=== PATIENT | male | born 1965 | race Caucasian/White ===

== ENCOUNTER 2020-02-22 12:28 | Emergency (ER) | payer BC, SELFPAY ==
[2020-02-22] VITALS (9 sets, daily range): BP systolic 124–156; BP diastolic 71–94; PULSE 78–123; RESP 12–20; TEMP 36.9; O2SAT 98–100
--- NOTE | ~2020-02-22 | XR_ITS ---
EXAMINATION: XR chest 1V portable DATE: 02/22/2020 13:21 INDICATION: Shortness of breath and cough. TECHNIQUE: A single frontal view of the chest was obtained. COMPARISON: Chest 2 views 01/14/2018 FINDINGS: The chest demonstrates clear lungs without pneumonia, pleural effusion, or pneumothorax. Th e heart size is normal. IMPRESSION: 1. No acute cardiopulmonary disease. Reviewed, dictated and finalized at location A.
--- NOTE | 2020-02-22 12:42 | ECG_ITS ---
Measurements Intervals [place] Rate: 109 P: 80 DE: 183 QRS: -29 QRSD: 98 T: 60 QT: 324 QTc: 438 Interpretive Statements SINUS TACHYCARDIA BASELINE ARTIFACT- I, II, III, AVR, AVL, AVF, V1-V6 ABNORMAL ECG Electronically Signed On 02-22-2020 12:50:10 CDT by Morgan Chapman D.O.
--- NOTE | 2020-02-22 12:43 | ED.SOB ---
HPI - SOB/Dyspnea General Chief Complaint: Shortness of Breath/Dyspnea Stated Complaint: short of breath, cough Time Seen by Provider: 02/22/20 12:32 Source: patient Mode of arrival: ambulatory Limitations: no limitations History of Present Illness HPI Narrative: A 54 y/o male presents to the ED, with c/o SOB that began on Friday (2 days ago) and other respiratory Sx that began on (5 days ago). Pt states that his Sx started with a scratchy throat, cough and congestion, but notes that he has a hx of allergies that are usually exacerbated at this time of the year and thought his Sx were d/t this. He states that his Sx began worsening on Friday and he began having SOB, mild wheezes and chest tightness d/t laboring to breathe. Pt notes a cough with clear sputum production and a measured temperature of 99.5F. Pt has a temperature of 98.5 in the ED. He denies weakness and ABD pain. He states that he had family contacts with a stomach virus recently, but they were not dx with anything. Pt notes working from home and has been self-quarantining/social distancing since January 28, 2020. Pt has a PMHx of HTN, and Hypercholesterolemia. He notes having a stress test done in the past and denies hx of blood clots. elicited complaint: shortness of breath Onset (ago): day(s) (5) Timing: progressively worsening Associated symptoms: fever (99.5F), cough, wheezing (mild), sputum production (clear), chest congestion and other (chest tightness when laboring to breathe) Related Data Home Medications Medication Instructions Recorded Confirmed coenzyme Q10 100 mg capsule 100 mg PO DAILY 10/18/19 fexofenadine 180 mg tablet 180 mg PO DAILY 10/18/19 multivitamin 1 tablet PO DAILY 10/18/19 omega-3 fatty acids 1,000 mg 1,000 mg PO DAILY 10/18/19 capsule Allergies Allergy/AdvReac Type Severity Reaction Status Date / Time aspirin Allergy Unknown Hives Verified 02/22/20 12:43 epinephrine Allergy Unknown Hives Verified 02/22/20 12:43 lidocaine Allergy Unknown Hives Verified 02/22/20 12:43 ANESTHETICS Allergy Intermediate HIVES Uncoded 12/18/18 09:41 Review of Systems Review of Systems: All systems reviewed & are unremarkable except as noted in HPI and below Constitutional: Constitutional: Reports fever(s) (99.5F) and Denies weakness ENT: Reports sore throat (scratchy) Cardiovascular: Cardiovascular: Reports other (chest tightness when laboring to breathe) Respiratory: Respiratory: Reports chest congestion, Reports cough, Reports dyspnea, Reports wheezing (mild) and Reports other (clear sputum) Gastrointestinal: Gastrointestinal: Denies abdominal pain PMFSH Past Medical History Medical History (Updated 02/22/20 @ 15:02 by Gudelia Sweeney MD) Acquired hypothyroidism HLD (hyperlipidemia) HTN (hypertension) Migraines Surgical History Surgical History (Updated 02/22/20 @ 13:47 by Agata Felton Backpack) History of tonsillectomy Social History Social History Smoking status: Never smoker Alcohol intake: current Drinks per week: 4 Substance use: never Exam Narrative: Exam Narrative: GENERAL: Well-appearing, well-nourished, and in no acute distress. HEAD: Normocephalic, atraumatic EYES: PERRLA and EOMI, conjunctiva clear without discharge EARS: TM's clear bilaterally without erythema or dullness NOSE: Nares clear, no rhinorrhea or epistaxis THROAT:Mucous membranes moist, Oropharynx normal without erythema, exudate, peritonsillar swelling or fluctuance NECK: Supple, without lymphadenopathy or mass RESPIRATORY: No respiratory distress, Airway patent, Respirations non-labored, Clear to auscultation without rales, rhonchi or wheeze HEART: Regular rate and rhythm. No murmur heard. Normal peripheral pulses. ABDOMEN: Soft, nontender, nondistended, normal active bowel sounds. No masses. No rebound or guarding, No organomegaly. EXTREMITIES: No edema, normal st
[2020-02-22 12:51] LABS: Basophils Percent Auto 0.2 % (0.2-1.2); Eosinophils Absolute Auto 0.1 K/mm3 (0-0.3); Eosinophils Percent Auto 0.5 % (0-4.4); Hemoglobin 14.3 g/dL (14.0-18.0); Immature Granulocyte Absolute 0.05 K/mm3 (0.00-0.031); Immature Granulocyte Percent A 0.5 % (0-0.5); Lymphocytes Absolute Auto 1.65 K/mm3 (0.9-3.2); Lymphocytes Percent Auto 17.3 % (18.3-44.2); Mean Corpuscular HGB Conc 34.9 g/dl (32-36); Mean Corpuscular Hemoglobin 30.5 pg (26-34); Mean Corpuscular Volume 87.4 fl (80-100); Mean Platelet Volume 9.1 fl (7.4-10.4); Monocytes Absolute Auto 0.7 K/mm3 (0.1-0.6); Monocytes Percent Auto 7.6 % (2.6-8.5); Neutrophils Absolute Auto 7.1 K/mm3 (1.3-6.7); Neutrophils Percent Auto 73.9 % (45.5-73.1); Platelet Count Result 342 k/mm3 (150-375); Red Blood Count 4.69 M/mm3 (4.6-6.20); Red Cell Distribution Width 13.2 % (11.5-14.5); White Blood Count 9.6 K/mm3 (4.5-10.0)
[2020-02-22 13:04] LABS: Blood Urea Nitrogen 12 mg/dL (9-20); Calcium 9.9 mg/dL (8.4-10.2); Carbon Dioxide 25 mmol/L (22-30); Chloride 98 mmol/L (98-107); Estimated CRCL calculation 80 ml/min; Estimated Glomerular Filt Rate > 60; Glucose 110 mg/dL (75-110); Potassium 3.3 mmol/L (3.4-5.0); Sodium 136 mmol/L (137-145)
[2020-02-22 13:43] LABS: Alveolar/Arterial O2 Gradient 15.6 mmHg; Base Excess ABG 3.8 mEq/l (+/-2.0); Carboxyhemoglobin 0.4 % THb (0-2.0); Fractional Inspired Oxygen 21 %; HCO3 ABG 22.5 mEq/l (22.0-26.0); Methemoglobin ABG 0.3 %THb (0-1.5); Oxygen Content ABG 19.7 %vol (16.0-22.0); Oxygen Saturation ABG 98.8 % (95.0-100.0); Oxyhemoglobin 97.6 % THb (90.0-100.0); PO2 ABG 109.2 mmHg (80.0-100.0); Reduced Hemoglobin 1.7 %THb (0-5.0); Total Hemoglobin 14.3 g/dL (12.0-18.0)
[2020-02-22 13:45] LABS: Device ROOM AIR; Modified Allen's Test Pass; PCO2 ABG 20.8 mmHg (35.0-45.0); Site Drawn RIGHT RADIAL; pH ABG 7.652 (7.350-7.450)
[2020-02-22 13:49] LABS: Prothrombin Time 12.9 Seconds (11.1-14.7)
[2020-02-22 13:50] LABS: Partial Thromboplastin Time 28.2 SECONDS (22.3-36.8)
[2020-02-22 13:51] LABS: Lactic Acid Reflex 1.4 mmol/L (0.7-2.1)
[2020-02-22 13:54] LABS: D Dimer 0.27 ug/mL (<0.48)
[2020-02-22 14:03] LABS: Troponin I < 0.012 ng/mL (0.000-0.034)
[2020-02-22] MEDS: ALPRAZOLAM 0.25 MG TABLET PO (14:34)
== END 2020-02-22 15:20 | disposition home or self-care (01) ==
PROVIDERS: Emergency Provider General Practice; PCP Family Medicine
DX: J40 Bronchitis, not specified as acute or chronic (principal); R06.00 Dyspnea, unspecified; R00.0 Tachycardia, unspecified; R94.31 Abnormal electrocardiogram [ECG] [EKG]; E03.9 Hypothyroidism, unspecified; E78.5 Hyperlipidemia, unspecified; I10 Essential (primary) hypertension
CPT/HCPCS: 36415; 36600; 71045; 80048; 82375; 82805; 83050; 83605; 84484; 85025; 85380; 85610; 85730; 87081; 87804; 87880; 93005; 99284; A9270

== ENCOUNTER 2020-03-01 00:25 | Emergency (ER) | payer BC, SELFPAY ==
[2020-03-01 00:25] VITALS: BP 159/93; PULSE 101; RESP 16; TEMP 36.7; O2SAT 100
--- NOTE | 2020-03-01 00:55 | ED.RECABL ---
HPI - Recheck/Abnormal Lab/Rx General Chief Complaint: Recheck/Abnormal Lab/Rx Stated Complaint: high bp Time Seen by Provider: 03/01/20 00:30 Source: patient Mode of arrival: ambulatory Limitations: no limitations History of Present Illness HPI narrative: 54 yo male who presents for evaluation of elevated blood pressure. Patient reports he has been dealing with sinus drainage and congestion for over 1 week. His nasal drainage is clear phlegm, and he has been taking alexey D and sudafed for his symptoms. He denies fever or chills . His t max has been 99.3. He states he normally take 2 Sudafed daily but tonight he decided to take 4 sudafed. He noticed 30 minutes after taking his sudafed he reports tongue and face felt numbness. He immediately checked his blood pressure and he reports reading in 170s/100, so he came to ER. He reports now his symptoms have resolved and he feels the best he has felt. He denies chest pain or sob. He has an appointment with PCP this morning at 10 am complaint: other (elevated BP) Related Data Home Medications Medication Instructions Recorded Confirmed coenzyme Q10 100 mg capsule 100 mg PO DAILY 10/18/19 fexofenadine 180 mg tablet 180 mg PO DAILY 10/18/19 multivitamin 1 tablet PO DAILY 10/18/19 omega-3 fatty acids 1,000 mg 1,000 mg PO DAILY 10/18/19 capsule Allergies Allergy/AdvReac Type Severity Reaction Status Date / Time aspirin Allergy Unknown Hives Verified 02/22/20 12:43 epinephrine Allergy Unknown Hives Verified 02/22/20 12:43 lidocaine Allergy Unknown Hives Verified 02/22/20 12:43 ANESTHETICS Allergy Intermediate HIVES Uncoded 12/18/18 09:41 Review of Systems Review of Systems: All systems reviewed & are unremarkable except as noted in HPI and below Constitutional: Constitutional: Denies chills, Denies fever(s) and Denies weakness ENT: Reports as per HPI and Reports nasal congestion Cardiovascular: Cardiovascular: Denies chest pain Respiratory: Respiratory: Denies cough and Denies dyspnea Gastrointestinal: Gastrointestinal: Denies abdominal pain Neurologic: Denies headache(s) PMFSH Past Medical History Medical History Acquired hypothyroidism HLD (hyperlipidemia) HTN (hypertension) Migraines Surgical History Surgical History History of tonsillectomy Social History Social History Smoking status: Never smoker Alcohol intake: current Drinks per week: 4 Substance use: never Exam Const: General: no acute distress and alert Orientation/consciousness: patient oriented x3 HENMT: Head: normocephalic and atraumatic Ears: external ears normal and unable to visualize TM on the left (due cerumen) General nose exam: Normal external nose present, No nasal polyps present and No nasal discharge present Face and sinus: normal facial exam, sinuses nontender and face symmetric Mouth: Yes Normal oral and palatal mucosa present, Yes lip normal, Yes tongue normal and Yes oropharynx normal Throat: posterior oropharynx normal and tonsils normal Eyes: Conjunctivae: conjunctivae normal EOM: EOMs intact bilaterally Chest: Chest palpation & inspection: normal inspection of the chest Resp: Effort & Inspection: normal respiratory effort, no retractions and no use of accessory muscles Auscultation: clear to auscultation bilaterally Cardio: Rate: regular rate Rhythm: regular rhythm Heart sounds: no murmurs Skin: General skin exam: normal color Rashes: no rashes Neuro: General: patient oriented x3, moves all extremities and CN's II-XI intact bilaterally Course Course Emergency Course: Patient presented for evaluation of elevated BP . On arrival patient's BP was 150s/90s. He is now 114/66 with out intervention. I discussed with patient he should only take medication as prescribed. I also
[2020-03-01 01:12] VITALS: BP 114/66; PULSE 86; RESP 12; O2SAT 100
== END 2020-03-01 01:14 | disposition home or self-care (01) ==
PROVIDERS: Emergency Provider General Practice; PCP Family Medicine
DX: I10 Essential (primary) hypertension (principal); E03.9 Hypothyroidism, unspecified; E78.5 Hyperlipidemia, unspecified
CPT/HCPCS: 99283

== ENCOUNTER 2020-03-27 12:51 | Outpatient (CLI) | payer BC, SELFPAY ==
--- NOTE | ~2020-03-27 | XR_ITS ---
EXAMINATION: XR chest 2V DATE: 03/27/2020 10:18 INDICATION: Shortness of breath and cough TECHNIQUE: Frontal and lateral views of the chest are obtained COMPARISON: 02/22/2020 FINDINGS: The lungs are free of acute opacities. There is no pleural effusion or pneumothorax. The ca rdiomediastinal silhouette is normal. The visualized bones and soft tissues are unremarkable. IMPRESSION: 1. No acute cardiopulmonary abnormality. Reviewed, dictated and finalized at location A.
[2020-03-27 10:23] LABS: Basophils Percent Auto 0.4 % (0.2-1.2); Eosinophils Absolute Auto 0.2 K/mm3 (0-0.3); Eosinophils Percent Auto 3.1 % (0-4.4); Hematocrit 41.9 % (42.0-52.0); Hemoglobin 14.2 g/dL (14.0-18.0); Immature Granulocyte Absolute 0.02 K/mm3 (0.00-0.031); Immature Granulocyte Percent A 0.4 % (0-0.5); Lymphocytes Percent Auto 38.3 % (18.3-44.2); Mean Corpuscular HGB Conc 33.9 g/dl (32-36); Mean Corpuscular Hemoglobin 30.8 pg (26-34); Mean Corpuscular Volume 90.9 fl (80-100); Mean Platelet Volume 8.9 fl (7.4-10.4); Monocytes Absolute Auto 0.6 K/mm3 (0.1-0.6); Monocytes Percent Auto 10.2 % (2.6-8.5); Neutrophils Absolute Auto 2.6 K/mm3 (1.3-6.7); Neutrophils Percent Auto 47.6 % (45.5-73.1); Platelet Count Result 269 k/mm3 (150-375); Red Blood Count 4.61 M/mm3 (4.6-6.20); Red Cell Distribution Width 12.8 % (11.5-14.5); White Blood Count 5.5 K/mm3 (4.5-10.0)
[2020-03-27 10:37] LABS: Alanine Aminotransferase 26 U/L (4-50); Albumin Level 4.9 g/dL (3.5-5.1); Alkaline Phosphatase 45 U/L (38-126); Aspartate Amino Transferase 27 U/L (17-59); Bilirubin,Total 0.6 mg/dL (0.2-1.3); Blood Urea Nitrogen 15 mg/dL (9-20); Calcium 10.1 mg/dL (8.4-10.2); Carbon Dioxide 33 mmol/L (22-30); Chloride 98 mmol/L (98-107); Estimated Glomerular Filt Rate > 60; Glucose 103 mg/dL (75-110); Sodium 138 mmol/L (137-145)
[2020-03-30 20:16] LABS: CMV IgM Antibody <30.00 AU/mL (<30.00)
[2020-04-01 20:53] LABS: EBV Nuclear Ab Antibody <18.00 U/mL (<18.00); EBV Nuclear Ab Interpretation Recent; EBV Virus Capsid Ag IgM Ab <36.00 U/mL (<36.00)
== END 2020-03-27 12:52 | disposition home or self-care (01) ==
PROVIDERS: PCP Family Medicine; Visit Provider Physician Assistant
DX: R50.9 Fever, unspecified (principal)
CPT/HCPCS: 36415; 71046; 80053; 85025; 86038; 86644; 86645; 86664; 86665

== ENCOUNTER 2020-04-26 17:36 | Emergency (ER) | payer BC, SELFPAY ==
--- NOTE | ~2020-04-26 | XR_ITS ---
EXAMINATION: XR chest 1V portable DATE: 04/26/2020 18:11 INDICATION: Arrhythmia. Fever. TECHNIQUE: A single frontal view of the chest was obtained. COMPARISON: Chest 2 views 03/27/2020 FINDINGS: The chest demonstrates clear lungs without pneumonia, pleural effusion, or pneumothorax. Th e heart size is normal. IMPRESSION: 1. No acute cardiopulmonary disease. Reviewed, dictated and finalized at location A.
--- NOTE | ~2020-04-26 | CT_ITS ---
EXAMINATION: CT chest abdomen pelvis w con DATE: 04/26/2020 19:05 INDICATION: Fever. Swollen glands. TECHNIQUE: Computed tomography (CT) of the chest, abdomen, and pelvis was performed with 100 mL Omnip aque 350 intravenous contrast. Automated exposure control and iterative reconstruction technique were employed. The dose-length product was 596.40 mGy-cm. COMPARISON: None FINDINGS: CHEST CT: There is mild scarring at the lung apices. Calcified bilateral pulmonary nodules are consistent with old granulomatous disease. No pleural effusion. The heart size is normal. No pericardial effusion. Th ere are no pathologically enlarged lymph nodes. There is bilateral gynecomastia. ABDOMEN/PELVIS CT: The liver, gallbladder, spleen, pancreas, adrenal glands, and kidneys are normal. The prostate is mil dly enlarged. There are no dilated loops of bowel. The appendix is normal. There are no pathologicall y enlarged lymph nodes. There is no free intraperitoneal fluid. There are chronic bilateral L5 pars d efects. There is 7 mm anterolisthesis of L5 on S1. IMPRESSION: 1. No etiology for the patient's symptoms. Reviewed, dictated and finalized at location A.
--- NOTE | 2020-04-26 17:39 | ECG_ITS ---
Measurements Intervals [place] Rate: 96 P: 71 MT: 166 QRS: -34 QRSD: 84 T: 53 QT: 324 QTc: 410 Interpretive Statements SINUS RHYTHM LEFT AXIS DEVIATION ST ELEVATION IN ANT/INF LEADS- PROBABLY EARLY REPOLARIZATION BORDERLINE ECG Electronically Signed On 04-27-2020 6:53:33 CDT by Morgan Chapman D.O.
[2020-04-26 17:48] VITALS: BP 150/86; PULSE 96; RESP 15; TEMP 36.9; O2SAT 100
[2020-04-26 17:57] VITALS: BP 150/86; PULSE 96; RESP 15; TEMP 36.9; O2SAT 100
--- NOTE | 2020-04-26 18:05 | ED.GENADULT ---
HPI - General Adult General Chief complaint: Arrhythmia/Palpitations <Irasema Jamison MD - Last Filed: 04/26/20 19:11> Stated complaint: increased hr <Irasema Jamison MD - Last Filed: 04/26/20 19:11> Time Seen by Provider: 04/26/20 17:49 <Irasema Jamison MD - Last Filed: 04/26/20 19:11> History of Present Illness HPI narrative: Patient presents with his for 1 month of fever. Temperatures up to 100.4. Feeling poorly. Started with sinus drainage 2 months ago. He has had numerous tests here and with his private Dr. Rodriguez. No causes yet been found. He has no pain. He complains of submandibular swollen glands. He felt like his heart was racing at home. His says sometimes he is pale. 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 He does not smoke. He occasionally drinks alcohol. <Irasema Jamison MD - Last Filed: 04/26/20 19:11> Onset (ago): week(s) <Irasema Jamison MD - Last Filed: 04/26/20 19:11> Associated symptoms: malaise <Irasema Jamison MD - Last Filed: 04/26/20 19:11> Treatments prior to arrival: other (Tylenol) <Irasema Jamison MD - Last Filed: 04/26/20 19:11> Related Data Home medications: Home Medications Medication Instructions Recorded Confirmed fexofenadine 180 mg tablet 180 mg PO DAILY 10/18/19 multivitamin 1 tablet PO DAILY 10/18/19 omega-3 fatty acids 1,000 mg 1,000 mg PO DAILY 10/18/19 capsule fluticasone propionate 50 1 spray NASAL DAILY 03/01/20 03/01/20 mcg/actuation nasal spray,suspension acetaminophen 500 mg tablet 500 mg PO Q6H PRN 03/13/20 sertraline 100 mg tablet 100 mg PO DAILY 03/14/20 <Irasema Jamison MD - Last Filed: 04/26/20 19:11> Allergies/adverse reactions: Allergies Allergy/AdvReac Type Severity Reaction Status Date / Time aspirin Allergy Unknown Hives Verified 03/01/20 10:12 epinephrine Allergy Unknown Hives Verified 03/01/20 10:12 lidocaine Allergy Unknown Hives Verified 03/01/20 10:12 ANESTHETICS Allergy Intermediate HIVES Uncoded 12/18/18 09:41 <Irasema Jamison MD - Last Filed: 04/26/20 19:11> Review of Systems Review of Systems: Narrative: CONSTITUTIONAL: He has had fever, but not chills, or sweats. EYES: Denies visual changes, redness, or discharge. ENT: Denies rhinorrhea, congestion, sore throat, or otalgia. Complains of submandibular gland swelling. CARDIOVASCULAR: Denies chest pain, palpitations, or edema. RESPIRATORY: Denies cough or dyspnea. GASTROINTESTINAL: Denies abdominal pain, nausea, vomiting, or diarrhea. GENITOURINARY: Denies dysuria or hematuria. SKIN: Denies rash or itching. MUSCULOSKELETAL: Denies back pain, joint pain, or myalgia. NEUROLOGIC: Denies headache, numbness, or weakness. PSYCHIATRIC: Denies anxiety or depression. <Irasema Jamison MD - Last Filed: 04/26/20 19:11> PMFSH Past Medical History Medical History: Medical History Acquired hypothyroidism Allergic rhinitis HLD (hyperlipidemia) HTN (hypertension) Migraines <Irasema Jamison MD - Last Filed: 04/26/20 19:11> Surgical History Surgical History: Surgical History History of tonsillectomy <Irasema Jamison MD - Last Filed: 04/26/20 19:11> Social History Social History: Social History Smoking status: Never smoker Alcohol intake: current Drinks per week: 3 Substance use: never Gender identity (if verbalized by the patient): Male <Irasema Jamison MD - Last Filed: 04/26/20 19:11> Exam Narrative: Exam Narrative: GENERAL: Well-appearing, well-nourished, and in no acute distress. Curly garza hair HEAD: Normocephalic, atraumatic. EYES: PERRLA and EOMI. ENT: Nares clear, no rhinorrhea or epistaxis. Mucous membranes moist. No palpable submandibular glands NECK: Supple. CHEST: Clear to auscultation. No respiratory distress. HEART: Regular rate
[2020-04-26] MEDS: ASPIRIN 81 MG CHEWABLE TABLET 324 MG PO (18:26)
[2020-04-26] MEDS: SODIUM CHLORIDE 0.9% IV 1,000 ML 999 ML IV CONT (18:27)
[2020-04-26 18:28] LABS: Basophils Percent Auto 0.2 % (0.2-1.2); Eosinophils Absolute Auto 0.1 K/mm3 (0-0.3); Eosinophils Percent Auto 1.5 % (0-4.4); Hematocrit 41.9 % (42.0-52.0); Hemoglobin 14.3 g/dL (14.0-18.0); Immature Granulocyte Absolute 0.04 K/mm3 (0.00-0.031); Immature Granulocyte Percent A 0.4 % (0-0.5); Lymphocytes Percent Auto 29.9 % (18.3-44.2); Mean Corpuscular HGB Conc 34.1 g/dl (32-36); Mean Corpuscular Hemoglobin 30.8 pg (26-34); Mean Corpuscular Volume 90.3 fl (80-100); Mean Platelet Volume 8.9 fl (7.4-10.4); Monocytes Absolute Auto 0.8 K/mm3 (0.1-0.6); Monocytes Percent Auto 8.1 % (2.6-8.5); Neutrophils Absolute Auto 5.6 K/mm3 (1.3-6.7); Neutrophils Percent Auto 59.9 % (45.5-73.1); Platelet Count Result 300 k/mm3 (150-375); Red Blood Count 4.64 M/mm3 (4.6-6.20); Red Cell Distribution Width 12.5 % (11.5-14.5); White Blood Count 9.4 K/mm3 (4.5-10.0)
[2020-04-26 18:38] LABS: Prothrombin Time 13.1 Seconds (11.1-14.7)
[2020-04-26 18:39] LABS: Lactic Acid 1.4 mmol/L (0.7-2.1); Partial Thromboplastin Time 26.4 SECONDS (22.3-36.8)
[2020-04-26 18:41] LABS: Blood Urea Nitrogen 17 mg/dL (9-20); Calcium 9.8 mg/dL (8.4-10.2); Carbon Dioxide 34 mmol/L (22-30); Chloride 97 mmol/L (98-107); Estimated CRCL calculation 80 ml/min; Estimated Glomerular Filt Rate > 60; Glucose 131 mg/dL (75-110); Potassium 3.7 mmol/L (3.4-5.0); Sodium 136 mmol/L (137-145)
[2020-04-26 18:44] VITALS: PULSE 83; RESP 13; O2SAT 100
[2020-04-26 18:46] VITALS: BP 131/70; PULSE 87; RESP 14; O2SAT 99
[2020-04-26 18:52] LABS: Troponin I < 0.012 ng/mL (0.000-0.034)
[2020-04-26 18:53] LABS: Erythrocyte Sedimentation Rate 4 mm/hr (0-20)
[2020-04-26 19:22] LABS: HIV 1/2 Ab P24 Ag Result Negative (Negative)
[2020-04-26 20:40] VITALS: BP 119/71; PULSE 80; RESP 16; O2SAT 99
[2020-04-26 20:59] LABS: Troponin I < 0.012 ng/mL (0.000-0.034)
[2020-04-27 16:51] LABS: SARS-CoV-2 RNA PCR Negative
== END 2020-04-26 20:35 | disposition home or self-care (01) ==
PROVIDERS: Emergency Medicine; Emergency Provider Emergency Medicine; PCP Family Medicine
DX: R50.9 Fever, unspecified (principal); Z20.828 Contact with and (suspected) exposure to other viral communicable diseases; E03.9 Hypothyroidism, unspecified; E78.5 Hyperlipidemia, unspecified; I10 Essential (primary) hypertension; R94.31 Abnormal electrocardiogram [ECG] [EKG]
CPT/HCPCS: 36415; 71045; 71260; 74177; 80048; 83605; 84484; 85025; 85610; 85652; 85730; 86703; 87040; 87635; 93005; 96360; 99284; A9270; C9803; G0432; J7030; Q9967; U0003

== ENCOUNTER 2020-09-22 09:10 | Outpatient (CLI) | payer BC, SELFPAY ==
--- NOTE | 2020-10-01 15:00 | WPDPFTINT ---
PFT Interpretation PFT Interpretation: This PFT met all criteria for ATS standards and reproducibility FEV/FVC pre bronchodilator was 76% FEV1 85% FVC 116% TLC 117% RV 100% RV/TLC 29% DLCO 111% when adjusted for alveolar volume but not adjusted for hemoglobin Flow volume loops were normal Impression: This is a normal PFT. Clinical correlation is advised.
== END 2020-09-22 09:11 | disposition home or self-care (01) ==
PROVIDERS: PCP Family Medicine; Visit Provider Family Medicine
DX: R06.09 Other forms of dyspnea (principal)
CPT/HCPCS: 94060; 94726; 94729

== ENCOUNTER 2021-02-27 08:39 | Outpatient (CLI) | payer BC, SELFPAY | END 2021-02-27 08:40 | disposition home or self-care (01) | LOC: ANHCOVIDVC 08:39 | PROVIDERS: PCP Family Medicine | DX: Z23 Encounter for immunization (principal) | CPT/HCPCS: 0001A; 91300 ==

== ENCOUNTER 2021-03-20 08:47 | Outpatient (CLI) | payer BC, SELFPAY | END 2021-03-20 08:48 | LOC: ANHCOVIDVC 08:47 | PROVIDERS: PCP Family Medicine | DX: Z23 Encounter for immunization (principal) | CPT/HCPCS: 0002A; 91300 ==

== ENCOUNTER → 2021-10-24 02:33 | Outpatient (CLI) | payer BC, SELFPAY ==
[2021-10-24 20:26] LABS: SARS-CoV-2 RNA PCR Positive
== END ==
PROVIDERS: PCP Family Medicine; Visit Provider Physician Assistant
DX: U07.1 COVID-19 (principal)
CPT/HCPCS: C9803; U0003; U0005

== ENCOUNTER 2021-10-29 07:46 | Outpatient (RCR) | payer BC, SELFPAY ==
[2021-10-29 08:10] VITALS: BP 106/62; PULSE 80; RESP 20; TEMP 36.3; O2SAT 99
[2021-10-29] MEDS: ACETAMINOPHEN 325 MG TABLET 650 MG PO (08:19)
[2021-10-29] MEDS: diphenhydrAMINE HCl CAP 25 MG CAPSULE PO (08:20)
[2021-10-29] MEDS: FAMOTIDINE 20 MG TABLET PO (08:20)
[2021-10-29 09:32] VITALS: BP 105/61
--- NOTE | 2021-10-30 08:24 | PC.NURSE ---
Called Mr Panchal, and he is fine this morning he stated, he said he had no reactions and does not have any questions at this time.
== END 2021-10-29 17:00 ==
LOC: AMCINF 07:46
PROVIDERS: PCP Physician Assistant; Visit Provider Internal Medicine Hematology & Oncology
DX: U07.1 COVID-19 (principal); I10 Essential (primary) hypertension
CPT/HCPCS: A9270; M0245; Q0245

== ENCOUNTER 2022-09-03 08:49 | Outpatient (CLI) | payer BC, SELFPAY ==
--- NOTE | ~2022-09-03 | MR_ITS ---
EXAMINATION: MR brain IAC wo/w con DATE: 09/03/2022 10:12 INDICATION: Right-sided tinnitus. TECHNIQUE: Magnetic resonance imaging (MRI) of the brain, brainstem, and internal auditory canals was performed without and with 18 mL MultiHance intravenous contrast. COMPARISON: Brain MRI 05/21/2012, head CT 01/14/2018. FINDINGS: There are 3 small foci of nonspecific increased T2-weighted signal intensity in the cerebra l white matter, which is within normal limits for the patient's age. There is no intracranial hemorrh age, acute infarction, or abnormal intracranial mass lesion. The ventricles are normal in size. The i nternal auditory canal and inner and middle ears are normal. There are trace bilateral mastoid effusi ons. The orbits are normal. There is mild mucosal thickening in the ethmoid sinuses. IMPRESSION: 1. Normal brain. Reviewed, dictated and finalized at location B. IMPRESSION: 1. Normal brain.
== END 2022-09-03 08:50 | disposition home or self-care (01) ==
PROVIDERS: PCP Family Medicine; Visit Provider Physician Assistant
DX: H93.11 Tinnitus, right ear (principal)
CPT/HCPCS: 70553; A9577